=== PATIENT | female | born 1965 ===

== ENCOUNTER 2016-08-11 23:56 | Emergency (ER) | payer OTHER, MEDICAID ==
[2016-08-12 00:39] LABS: ABSOLUTE NEUTROPHIL COUNT 5.5 K/mm3 (1.8-7.7); BASO % 0.4 % (0.2-1.0); EOS # 0.4 (0.0-0.5); EOS % 3.8 % (0.9-2.9); HEMATOCRIT 41.8 % (37.0-47.0); HEMOGLOBIN 13.5 gm/l (12.0-16.0); IMM NEUT% 0.4 % (0-1); LYMPH # 2.8 (1.0-4.8); MEAN CELL VOLUME 85.7 fl (81.0-99.0); MEAN CORPUSCULAR HEMOGLOBIN 27.7 pg (27.0-31.0); MEAN CORPUSCULAR HGB CONC 32.3 g/dl (33.0-37.0); MEAN PLATELET VOLUME 10.2 fl (7.4-10.4); MONO # 0.5 (0.0-0.8); MONO % 5.9 % (4-12); NEUT % 59.5 % (43-75); PLATELET COUNT 373 K/mm3 (130-400); RED CELL DISTRIBUTION WIDTH 14.3 % (11.5-14.5)
[2016-08-12] MEDS ORDERED: ONDANSETRON 4 MG/2ML 2 ML VIAL ONE (00:39)
[2016-08-12] MEDS ORDERED: SODIUM CHLORIDE 0.9% 1,000 ML ONE (00:39)
[2016-08-12 00:53] LABS: ALB/GLOB RATIO 0.9 (>1.0); ALBUMIN 3.8 gm/dL (3.5-5.7); CALCIUM 9.3 mg/dL (8.6-10.3)
[2016-08-12 00:55] LABS: URINE BILIRUBIN NEGATIVE (NEGATIVE); URINE BLOOD NEGATIVE (NEGATIVE); URINE GLUCOSE (UA) 3+ (NEGATIVE); URINE LEUKOCYTE ESTERASE NEGATIVE (NEGATIVE); URINE NITRITE NEGATIVE (NEGATIVE); URINE PROTEIN TRACE (NEGATIVE); URINE UROBILINOGEN NORMAL (0-1 mg/dl)
[2016-08-12 00:56] LABS: URINE APPEARANCE CLEAR; URINE COLOR YELLOW
[2016-08-12] MEDS ORDERED: MAALOX/LIDO2%VISC/SIMETHICONE 40 ML BOT ONE (01:56)
--- NOTE | 2016-08-12 07:43 | US ---
Exam: Gallbladder ultrasound COMPARISON: None INDICATION: Right upper quadrant pain with nausea, elevated alkaline phosphatase. FINDINGS: Gallbladder ultrasound was obtained. The gallbladder was normal without stones, sludge or wall thickening. Gallbladder was only partially distended. Sonographic Jaquez sign was not elicited. Common bile duct normal at 4 mm. IMPRESSION: Negative gallbladder ultrasound. Preliminary report transmitted to the emergency department from [facility] at 0310 hours 08/12/2016.
== END 2016-08-12 04:45 | disposition home or self-care (01) ==
LOC: ED 23:56
DX: K29.70 Gastritis, unspecified, without bleeding (principal); E11.9 Type 2 diabetes mellitus without complications; Z79.84 Long term (current) use of oral hypoglycemic drugs
CPT/HCPCS: 83690; 85025; 80053; 81003; 76705; 99284; 96374; 96361 ×4; 99283; A9270; J2405; J7030